=== PATIENT | male | born 1970 | race American Indian/Alaskan Native ===

== ENCOUNTER 2017-09-12 06:28 | Day surgery (SDC) | payer OTHER ==
[2017-09-12 06:34] VITALS: BMI 38.7
--- NOTE | 2017-09-12 06:56 | ED PDOC ---
Arrival/HPI - General Chief Complaint: Chest Pain Time Seen by Provider: 09/12/17 06:52 Historian: Patient, Spouse - History of Present Illness Narrative History of Present Illness (Text): 09/12/17 06:45 Pt. 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 Past Medical History - Provider Review Nursing Documentation Reviewed: Yes - Travel History Have you recently traveled outside [place] w/in the past 3 mons?: No - Cardiac Hx Cardiac Disorders: Yes Hx Hypertension: Yes - Psychiatric Hx Substance Use: No Family/Social History - Physician Review Nursing Documentation Reviewed: Yes Family/Social History: Hypertension Smoking Status: Never Smoked Hx Alcohol Use: No Hx Substance Use: No Allergies/Home Meds Allergies/Adverse Reactions: Allergies No Known Allergies Allergy (Verified 09/12/17 06:34) Home Medications: Home Meds Medication Instructions Recorded Confirmed Losartan [Cozaar] 1 tab PO DAILY 09/12/17 09/12/17 Review of Systems - Review of Systems Constitutional: Normal Eyes: Normal ENT: Normal Respiratory: Normal Cardiovascular: Chest Pain Gastrointestinal: Normal Genitourinary Male: Normal Musculoskeletal: Normal Skin: Normal Neurological: Normal Endocrine: Normal Hemo/Lymphatic: Normal Psychiatric: Normal Physical Exam Vital Signs Pulse Resp BP Pulse Ox 09/12/17 06:46 96 H 17 152/102 H 99 Temperature: Afebrile Blood Pressure: Normal Pulse: Regular Respiratory Rate: Normal Appearance: Positive for: Well-Appearing, Non-Toxic, Comfortable Pain Distress: None Mental Status: Positive for: Alert and Oriented X 3 - Systems Exam Head: Present: Atraumatic, Normocephalic Pupils: Present: PERRL Extroacular Muscles: Present: EOMI Conjunctiva: Present: Normal Mouth: Present: Moist Mucous Membranes Neck: Present: Normal Range of Motion Respiratory/Chest: Present: Clear to Auscultation, Good Air Exchange. No: Respiratory Distress, Accessory Muscle Use Cardiovascular: Present: Regular Rate and Rhythm, Normal S1, S2. No: Murmurs Abdomen: No: Tenderness, Distention, Peritoneal Signs Back: Present: Normal Inspection Upper Extremity: Present: Normal Inspection. No: Cyanosis, Edema Lower Extremity: Present: Normal Inspection. No: Edema, CALF TENDERNESS Neurological: Present: GCS=15, CN II-XII Intact, Speech Normal, Motor Func Grossly Intact, Normal Sensory Function Skin: Present: Warm, Dry, Normal Color. No: Rashes Psychiatric: Present: Alert, Oriented x 3, Normal Insight, Normal Concentration Medical Decision Making - RAD Interpretation Radiology Orders: 09/12/17 06:52 CHEST PORTABLE [RAD] Stat - EKG Interpretation EKG Interpretation (Text): 09/12/17 06:45 EKG- NSR@67,non specific T wave changes Interpreted by ED Physician: Yes Type: 12 lead EKG - Medication Orders Current Medication Orders: Aspirin (Aspirin) 325 mg PO ONCE STA Stop: 09/12/17 06:59 Nitroglycerin (Nitro-Bid 2% Oint) 1 ea TOP ONCE STA Stop: 09/12/17 06:59 - Transfer of Care Patient signed out to Dr:: Sukhwinder Pending Labs:: Pending labs/CXR/reassess/final disposition Disposition/Present on Arrival - Present on Arrival Any Indicators Present on Arrival: No History of DVT/PE: No History of Uncontrolled Diabetes: No Urinary Catheter: No History of Decub. Ulcer: No History Surgical Site Infection Following: None - Disposition Have Diagnosis and Disposition been Completed?: No Diagnosis: Chest pain Disposition Time: 07:00 Condition: STABLE Discharge Instructions (ExitCare): Chest Pain (ED) Forms: [employer] ([place])
[2017-09-12] MEDS ORDERED: Nitroglycerin 2% Ointment Foilpak UD TOP STA (06:58)
[2017-09-12 07:07] LABS: HEMOGLOBIN 12.4 g/dL (14.0-18.0); MEAN CELL VOLUME 75.8 fl (80.0-105.0); MEAN CORPUSCULAR HEMOGLOBIN 24.8 pg (25.0-35.0); MEAN CORPUSCULAR HGB CONC 32.7 g/dl (31.0-37.0); PLATELET COUNT 215 10^3/uL (120.0-450.0); RED CELL DISTRIBUTION WIDTH 17.1 % (11.5-14.5); WHITE BLOOD COUNT 4.4 10^3/ul (4.5-11.0)
[2017-09-12 07:18] LABS: ALB/GLOB RATIO 1.2 (1.1-1.8); ALBUMIN 4.2 g/dL (3.0-4.8); ALT/SGPT 38 U/L (7-56); AST/SGOT 25 U/L (17-59); BLOOD UREA NITROGEN 16 mg/dL (7-21); CALCIUM 8.3 mg/dL (8.4-10.5); GFR AFRICAN-AMERICAN > 60; GFR NON-AFRICAN AMERICAN 50
--- NOTE | 2017-09-12 07:28 | ED PDOC ---
Physical Exam Vital Signs Reviewed: Yes Vital Signs Temp Pulse Resp BP Pulse Ox 09/12/17 07:47 98.2 F 65 18 155/90 H 98 09/12/17 06:46 96 H 17 152/102 H 99 Blood Pressure: Hypertensive Pulse: Tachycardic Respiratory Rate: Normal Medical Decision Making ED Course and Treatment: 09/12/17 07:26 Patient endorsed to me by Dr. Palacios at 07:00, pending chest xray, lab results, re-evaluation and final disposition. 09/12/17 07:35 Patient seen and examined at bedside. Patient currently denies any chest pain or other complaints at this time. Patient reports he had a stress test done 2 weeks ago via [employer] consultant Dr. Johnny Bennett and informed further investigation was needed. At this time plan is to admit patient for high risk chest pain to rule out ACS. There is no significant clinical suspicion for aortic dissection or PE. Patients heart score is equal to 5. 09/12/17 08:00 Patient is being prepared to go to cathlab under the service of Dr. Johnny Bennett. - Lab Interpretations Lab Results: 09/12/17 06:42 09/12/17 06:42 Lab Results 09/12/17 06:42: WBC 4.4 L, RBC 5.00, Hgb 12.4 L, Hct 37.9 L, MCV 75.8 L, MCH 24.8 L, MCHC 32.7, RDW 17.1 H, Plt Count 215 09/12/17 06:42: Sodium 141, Potassium 3.9, Chloride 106, Carbon Dioxide 26, Anion Gap 13, BUN 16, Creatinine 1.5, Est GFR ( Amer) > 60, Est GFR (Non- Af Amer) 50, Random Glucose 97, Calcium 8.3 L, Total Bilirubin 1.1, AST 25, ALT 38, Alkaline Phosphatase 59, Lactate Dehydrogenase 487, Total Creatine Kinase 222, Troponin I 0.05, Total Protein 7.7, Albumin 4.2, Globulin 3.4, Albumin/ Globulin Ratio 1.2 09/12/17 06:42: PT 12.2, INR 1.06, APTT 29.1 - RAD Interpretation Narrative RAD Interpretations (Text): 09/12/17 07:49 cxr my read: no focal infiltrate, no wide mediastinum, no ptx Radiology Orders: 09/12/17 06:52 CHEST PORTABLE [RAD] Stat Creche Attendant: ED Physician - EKG Interpretation EKG Interpretation (Text): 09/12/17 07:50 0637: nsr at 67 bpm, nml qrs, nml axis, lateral flipped t waves, no acute sttw abn Interpreted by ED Physician: Yes - Medication Orders Current Medication Orders: Discontinued Medications Aspirin (Aspirin) 325 mg PO ONCE STA Stop: 09/12/17 06:59 Last Admin: 09/12/17 07:18 Dose: 325 mg Nitroglycerin (Nitro-Bid 2% Oint) 1 ea TOP ONCE STA Stop: 09/12/17 06:59 Last Admin: 09/12/17 07:17 Dose: 1 ea - Scribe Statement The provider has reviewed the documentation as recorded by the Nicholasibjames Berger Provider Scribe Attestation: All medical record entries made by the Scribe were at my direction and personally dictated by me. I have reviewed the chart and agree that the record accurately reflects my personal performance of the history, physical exam, medical decision making, and the department course for this patient. I have also personally directed, reviewed, and agree with the discharge instructions and disposition. Disposition/Present on Arrival - Present on Arrival Any Indicators Present on Arrival: No History of DVT/PE: No History of Uncontrolled Diabetes: No Urinary Catheter: No History of Decub. Ulcer: No History Surgical Site Infection Following: None - Disposition Have Diagnosis and Disposition been Completed?: Yes Diagnosis: Chest pain Disposition: HOSPITALIZED Disposition Time: 07:35 Patient Problems: Current Active Problems Problem Status Onset Chest pain Acute Condition: STABLE Discharge Instructions (ExitCare): Chest Pain (ED) Referrals: Corazon Hills MD [Primary Care Provider] - Follow up with primary Forms: [employer] (Chinese)
[2017-09-12 07:30] LABS: PROTHROMBIN TIME 12.2 SECONDS (9.4-12.5); TROPONIN I 0.05 ng/mL
[2017-09-12 07:31] LABS: INR 1.06 (0.93-1.08); PARTIAL THROMBOPLASTIN TIME 29.1 Seconds (25.1-36.5)
--- NOTE | 2017-09-12 09:00 | RAD ---
Date of service: 09/12/2017 HISTORY: chest pain COMPARISON: No prior. FINDINGS: LUNGS: No active pulmonary disease. PLEURA: No significant pleural effusion identified, no pneumothorax apparent. CARDIOVASCULAR: Mild cardiomegaly OSSEOUS STRUCTURES: No significant abnormalities. VISUALIZED UPPER ABDOMEN: Normal. OTHER FINDINGS: None. IMPRESSION: No active disease.
--- NOTE | 2017-09-12 11:11 | CARD ---
APPROVED REPORT Date of service: 09/12/2017 EKG Measurement Heart [id number] <Conclusion> Normal sinus rhythm Possible Left atrial enlargement Nonspecific T wave abnormality Somatic Tremors. Poor R Progrfession V1-V3.
[2017-09-12] MEDS ORDERED: Lidocaine 2% Inj (20ml) ONE (12:02)
[2017-09-12] MEDS ORDERED: Iodixanol 320 MG/ML 200 ML BOTTLE IV ONE (12:03)
[2017-09-12] MEDS ORDERED: Iohexol 350mgl/ml 50 ML ONE (12:03)
[2017-09-12] MEDS ORDERED: Nitroglycerin 50mg in D5W 50 MG/250 ML BOTTLE IV ONE (12:03)
[2017-09-12] MEDS ORDERED: Iodixanol 320 MG/ML 100 ML BOTTLE IV ONE (12:03)
[2017-09-12] MEDS ORDERED: Midazolam 2 MG/2 ML VIAL ONE ×2 (12:15→12:31)
[2017-09-12] MEDS ORDERED: Sodium Chloride 0.9% 1,000 ML IV SCH (13:15)
--- NOTE | 2017-09-12 14:36 | CARDCATH ---
PROCEDURE DATE: 09/12/2017 HISTORY: The patient is a 46-year-old male who presented to the Emergency Room with progressive angina and chest pain. The patient suffers from hypertension. He apparently underwent a stress test at [facility] which was said to be abnormal. Because of this, cardiac catheterization was recommended. The patient was brought up for an urgent cardiac catheterization. The right femoral artery was cannulated with a 6-Turkish sheath. There were no complications. Coronary arteriography, left ventriculogram, and supra-aortic valvular injection were performed. There were no complications. I performed moderate sedation with a trained observer. After fentanyl and Versed, my intra-service time was 15 minutes. Findings on catheterization revealed a left ventricle that contracted normally. Estimated ejection fraction is 60%. The left main artery was unremarkable. The LAD and diagonal vessels were large vessels with intimal irregularities without significant stenoses. The circumflex artery and obtuse marginal branches revealed diffuse atherosclerosis without critical lesions. The right coronary artery was selectively cannulized, found to be a dominant vessel. The RCA revealed diffuse atherosclerosis with 50% stenosis in the midportion of the PDA. Supra-aortic valvular injection revealed no aortic insufficiency. The patient tolerated the procedure well. Angio-Seal was used to close the femoral artery site. In summary, the procedure revealed diffuse atherosclerosis in his coronary tree. The PDA revealed a 50% stenoses in its midportion. LV function is normal. No aortic insufficiency noted. Given these findings, the patient's treatment should be daily aspirin as well as cardiac risk reduction program. Johnny Bennett MD
[2017-09-12 17:04] VITALS: TEMP 97.5; O2SAT 98
[2017-09-12 18:31] VITALS: RESP 18
[2017-09-12 19:11] VITALS: BP 172/92; PULSE 74
== END 2017-09-12 20:35 | disposition home or self-care (01) ==
LOC: ED 06:28 → CATH 08:14 → 2RSO 13:10 → CATH 20:35
PROVIDERS: ATTEND Internal Medicine Cardiovascular Disease
DX: I25.110 Atherosclerotic heart disease of native coronary artery with unstable angina pectoris (principal); I10 Essential (primary) hypertension; R94.39 Abnormal result of other cardiovascular function study; R40.2412 Glasgow coma scale score 13-15, at arrival to emergency department
CPT/HCPCS: 71045; 80053; 82550; 83615; 84484; 85027; 85610; 85730; 93005; 93458; 99152; 99153; 99284; C1760; C1769; C1894; J1644; J2250; J3010; J7030; Q9966